=== PATIENT | female | born 1955 | race Caucasian/White ===

== ENCOUNTER 2017-05-25 13:30 | Emergency (ER) | payer OTHER ==
[~2017-05-25] VITALS: Ht 167.6 cm; Wt 72.5 kg
[2017-05-25 13:39] VITALS: BP 138/74; PULSE 98; RESP 16; TEMP 98.3; O2SAT 98
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
[2017-05-25] MEDS ORDERED: FLINT2 CHEW (13:55)
[2017-05-25] MEDS ORDERED: MONT5CHW2 CHEW (13:55)
[2017-05-25] MEDS ORDERED: FOLI400T PO (13:55)
[2017-05-25] MEDS ORDERED: LEVO112T2 PO (13:55)
[2017-05-25] MEDS ORDERED: MULTTAB67 PO (13:55)
[2017-05-25] MEDS ORDERED: VAGI10TA VAGINAL (13:55)
[2017-05-25] MEDS ORDERED: WELLTAB39 PO (13:55)
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
== END 2017-05-25 14:53 | disposition home or self-care (01) ==
LOC: PHEFT 13:30
DX: S16.1XXA Strain of muscle, fascia and tendon at neck level, initial encounter (principal); V49.50XA Passenger injured in collision with unspecified motor vehicles in traffic accident, initial encounter
CPT/HCPCS: 70450; 72125